=== PATIENT | male | born 1970 | race Caucasian/White ===

== ENCOUNTER 2016-11-28 09:49 | Observation (INO) | payer OTHER, MEDICAID ==
[2016-11-28 10:07] LABS: % IMMATURE GRANULYOCYTES 1.3 % (0.0-1.1); ABSOLUTE IMMATURE GRANULOCYTES 0.17 10^3/uL (0.00-0.10); ADD DIFF? NO; ADD MORPH? NO; ADD SCAN? NO; ATYPICAL LYMPHOCYTE FLAG 0 (0-99); FRAGMENT RBC FLAG 0 (0-99); HEMATOCRIT 33.7 % (40.0-51.0); HEMOGLOBIN 10.9 g/dL (13.7-17.5); LEFT SHIFT FLG 10 (0-99); LIPEMIA HEMOLYSIS FLAG 80 (0-99); MEAN CELL HEMOGLOBIN CONCENTR. 32.3 g/dL (32.4-36.7); MEAN CELL VOLUME 83.4 fL (81.5-99.8); MEAN PLATELET VOLUME 9.2 fL (8.7-11.7); PLATELET CLUMPS FLAG 50 (0-99); PLATELET COUNT 346 10^3/uL (150-400); RED BLOOD CELL COUNT 4.04 10^6/uL (4.40-6.38); RED CELL DISTRIBUTION WIDTH 15.7 % (11.5-15.2)
--- NOTE | 2016-11-28 10:12 | EDPHY ---
H & P Stated Complaint: Questionable TIA Time Seen by Provider: 11/28/16 09:52 HPI/ROS: CHIEF COMPLAINT: Transient aphasia, possible TIA HISTORY OF PRESENT ILLNESS: 46-year-old male history of morbid obesity (weight 370 lb), history of CHF, chronic kidney disease, dialysis, CHF, diabetes, currently residing at [facility] secondary to debility because he is unable to bear weight on his lower extremity secondary to old traumatic injury, arrives via ambulance from [facility] after a 30 minutes episode of expressive aphasia at 9:00 a.m. lasting approximately 30 minutes, now resolved. Resolved upon arrival by EMS. Patient remembers the event. He has no complaints of pain or discomfort. No headache. No chest pain. No back pain. No abdominal pain. He has been compliant with his Sunday dialysis, which dialysis yesterday (Sunday). . REVIEW OF SYSTEMS: A ten point review of systems was performed and is negative with the exception of the items mentioned in the HPI PAST MEDICAL & SURGICAL HISTORY: Morbid obesity, weight 370 lb, CHF, chronic kidney disease, dialysis, CHF, diabetes, inability to bear weight lower extremity secondary to old injury SOCIAL HISTORY:currently living at [facility]. Nonsmoker PHYSICAL EXAM (Prior to examination, patient consented to physical exam, hands were washed and my usual and customary physical exam procedures followed) 1) GENERAL: obese , alert and oriented. Appears to be in no acute distress. 2) HEAD: Normocephalic, atraumatic 3) HEENT: Pupils equal, round, reactive to light bilaterally. Sclera anicteric. 4) NECK: Full range of motion, no meningeal signs. 5) LUNGS: Clear auscultation bilaterally, no wheezes, no rhonchi, no retractions. 6) HEART: Regular rate and rhythm, no murmur, no heave, no gallop. 7) ABDOMEN: No guarding, no rebound, no focal tenderness, negative McBurney's, negative Chino's, negative Rovsing's, negative peritoneal sign, 8) MUSCULOSKELETAL: Moving all extremities, no focal areas of tenderness, no obvious trauma. No peripheral edema or discoloration. 9) BACK: No CVA tenderness, no midline vertebral tenderness, no fluctuance, no step-off, no obvious trauma, no visual or palpable abnormality. 10) SKIN: No rash, no petechiae. 11) Psychiatric: Patient is oriented X 3, there is no agitation. 12) NEURO: Awake, alert, and oriented to person, place and time. Answers questions appropriately. There were no obvious focal neurologic abnormalities. No cerebellar dysfunction. Cranial nerves 2 through to 12 intact. Upper and lower extremities bilaterally with strength 5 / 5, reflexes 2+. DIFFERENTIAL DIAGNOSIS: In no particular include but limited to CVA, migraine variant, TIA - Personal History Current Tetanus/Diphtheria Vaccine: Yes Current Tetanus Diphtheria and Acellular Pertussis (TDAP): Yes - Medical/Surgical History Hx Asthma: No Hx Chronic Respiratory Disease: No Hx Diabetes: Yes Hx Cardiac Disease: No Hx Renal Disease: Yes Hx Cirrhosis: No Hx Alcoholism: No Hx HIV/AIDS: No Hx Splenectomy or Spleen Trauma: No Other PMH: TIA, CKD, DIALYSIS, HTN, DM2 - Social History Smoking Status: Never smoked Constitutional: Initial Vital Signs Temperature (C) 36.9 C 11/28/16 09:54 Heart Rate 101 H 11/28/16 09:54 Respiratory Rate 14 11/28/16 09:54 Blood Pressure 141/104 H 11/28/16 09:54 O2 Sat (%) 85 L 11/28/16 09:54 O2 Delivery Mode Nasal Cannula O2 (L/minute) 2 Allergies/Adverse Reactions: No Known Allergies Allergy (Unverified 11/28/16 09:54) Medical Decision Making - Diagnostics Imaging: PA and Lateral Chest Indication: PAIN Shortness of breath and coughing. Comparison: None Findings: A right IJ dialysis catheter is present with the tip at the junction of superior vena cava and right atrium. Lungs are hypoventilated and clear with mild diffuse peribronchial thickening. Pulmonary vascularity is within normal limit. Heart size borderline enlarged for portable technique and degree of inspiration. No edema or effusion. Impression: 1. Hypoventilation. 2. No CHF or hilary fluid overload. Dictated By: Alonso Lopez MD Images reviewed by myself ED Course/Re-evaluation: 10:00 a.m.: Patient has as an NIH stroke score 0. Discussed case with Dr. Julio Bryan. Reviewed the patient's medical records. He is currently asymptomatic. 10:30 a.m.: Re-evaluation remains asymptomatic , NIH score of 0 11 am: Re-evaluation. He is asymptomatic. NIH score of 0. Discussed his elevated troponin which is in the indeterminate range. More likely secondary to his history of chronic kidney disease. Doubt acute cardiac injury. Doubt intracranial hemorrhage. Low utility with CT imagingis currently asymptomatic. Discussed MRI imaging. However due to his body habitus he will not fit in the MRI machine. 11:20 a.m.: Re-evaluation, he notes that his expressive aphasia has returned. On exam he has a nonfocal full peripheral examination however he is slow to form words. Discussed this with Dr. Bryan also evaluated the patient. Plan will be admission. 11:30 A.M.: Phone consultation with Dr. Dimitri Alvarez who will admit patient - Data Points Laboratory Results: Laboratory Results 11/28/16 04:52 11/28/16 04:52 11/28/16 11/28/16 04:52 04:52 WBC 12.92 10^3/uL H 10^3/uL (3.80-9.50) RBC 4.04 10^6/uL L 10^6/uL (4.40-6.38) Hgb 10.9 g/dL L g/dL (13.7-17.5) Hct 33.7 % L % (40.0-51.0) MCV 83.4 fL fL (81.5-99.8) MCH 27.0 pg L pg (27.9-34.1) MCHC 32.3 g/dL L g/dL (32.4-36.7) RDW 15.7 % H % (11.5-15.2) Plt Count 346 10^3/uL 10^3/uL (150-400) MPV 9.2 fL fL (8.7-11.7) Neut % (Auto) 77.3 % H % (39.3-74.2) Lymph % (Auto) 11.7 % L % (15.0-45.0) Piatt % (Auto) 8.0 % % (4.5-13.0) Eos % (Auto) 1.2 % % (0.6-7.6) Baso % (Auto) 0.5 % % (0.3-1.7) Nucleat RBC Rel Count 0.0 % % (0.0-0.2) Absolute Neuts (auto) 9.99 10^3/uL H 10^3/uL (1.70-6.50) Absolute Lymphs (auto) 1.51 10^3/uL 10^3/uL (1.00-3.00) Absolute Monos (auto) 1.03 10^3/uL H 10^3/uL (0.30-0.80) Absolute Eos (auto) 0.16 10^3/uL 10^3/uL (0.03-0.40) Absolute Basos (auto) 0.06 10^3/uL 10^3/uL (0.02-0.10) Absolute Nucleated RBC 0.00 10^3/uL 10^3/uL (0-0.01) Immature Gran % 1.3 % H % (0.0-1.1) Immature Gran # 0.17 10^3/uL H 10^3/uL (0.00-0.10) Sodium 139 mEq/L mEq/L (134-144) Potassium 4.9 mEq/L mEq/L (3.5-5.2) Chloride 98 mEq/L mEq/L (97-110) Carbon Dioxide 26 mEq/l mEq/l (22-31) Anion Gap 15 mEq/L mEq/L (8-16) BUN 64 mg/dL H mg/dL (7-23) Creatinine 4.6 mg/dL H mg/dL (0.7-1.3) Estimated GFR 14 Glucose 251 mg/dL H mg/dL (70-100) Calcium 9.1 mg/dL mg/dL (8.5-10.4) Troponin I 0.085 ng/mL H ng/mL (0-0.034) Medications Given: Discontinued Medications Sodium Chloride (Ns) 3,000 mls @ 0 mls/hr IV ONCE ONE PRN Reason: Wide Open Stop: 11/28/16 10:36 Last Admin: 11/28/16 10:39 Dose: Not Given Departure - Departure Disposition: [facility] Acute Clinical Impression: possible tia NIH Stroke Scale Date of Exam: 11/28/16 Time of Exam: 09:55 Level of Consciousness: Alert LOC Questions: Answers Both LOC Commands: Performs Both Correctly Best Gaze: Normal Visual: No Visual Loss Facial Palsy: Normal Motor Arm-Left: No Drift Motor Arm-Right: No Drift Motor Leg-Left: No Drift Motor Leg-Right: No Drift Limb Ataxis: Absent Sensory: Normal Best Language: No Aphasia Dysarthria: Normal Extinction and Inattention (Neglect): No Abnormality NIH Scale Score: 0
[2016-11-28 10:30] LABS: ANION GAP 15 mEq/L (8-16); CALCIUM 9.1 mg/dL (8.5-10.4); CARBON DIOXIDE 26 mEq/l (22-31); CHLORIDE 98 mEq/L (97-110); CREATININE 4.6 mg/dL (0.7-1.3); GLOMERULAR FILTRATION RATE 14; GLUCOSE 251 mg/dL (70-100); POTASSIUM 4.9 mEq/L (3.5-5.2); SODIUM 139 mEq/L (134-144)
--- NOTE | 2016-11-28 10:31 | CPEKG ---
Heart Rate: 94 RR Interval: 638 P-R Interval: 188 QRSD Interval: 98 QT Interval: 380 QTC Interval: 476 P Braham: 36 QRS Braham: -34 T Wave Braham: 81 EKG Severity - ABNORMAL ECG - EKG Impression: SINUS RHYTHM EKG Impression: VENTRICULAR PREMATURE COMPLEX EKG Impression: LEFT AXIS DEVIATION EKG Impression: BORDERLINE R WAVE PROGRESSION, ANTERIOR LEADS EKG Impression: NONSPECIFIC T ABNORMALITIES, LATERAL LEADS EKG Impression: BORDERLINE PROLONGED QT INTERVAL Electronically Signed By: Julio Bryan 28-Nov-2016 14:37:01
[2016-11-28] MEDS ORDERED: NS 3,000 ML IV ONE (10:35)
[2016-11-28 10:42] LABS: TROPONIN I 0.085 ng/mL (0-0.034)
[2016-11-28] MEDS ORDERED: SENNOSIDES/DOCUSATE SODIUM TAB PO PRN (18:27)
[2016-11-28] MEDS ORDERED: GABAPENTIN 300 MG CAP PO PRN (18:27)
[2016-11-28] MEDS ORDERED: DOCUSATE SODIUM 100 MG CAP PO PRN (18:27)
[2016-11-28] MEDS ORDERED: CYCLOBENZAPRINE 10 MG TAB PO PRN (18:27)
[2016-11-28] MEDS ORDERED: POLYETHYLENE GLYCOL 3350 17 GM PKT PO PRN (18:27)
[2016-11-28] MEDS ORDERED: ZOLPIDEM TARTRATE 5 MG TAB PO PRN (18:29)
[2016-11-28] MEDS ORDERED: ONDANSETRON 4 MG/2 ML VIAL IVP PRN (18:29)
--- NOTE | 2016-11-28 18:37 | PDGENHP ---
History and Physical History and Physical: HISTORY AND PHYSICAL CC: Difficulty with speech HISTORY: This patient was in his usual state of health until earlier today approximately 9:00 a.m. when he was pouring juice into a glass and dropped the glass. Aside from this there was no difficulty using his right hand and no other focal weakness. At that time he found he was having some difficulty finding his words. He also at same time was feeling fairly lightheaded and said that there was a weight he has that came over his vision diffusely. All of this lasted approximately 20-30 minutes. By the time he arrived here to the ER at 10 o' clock he has resolved all of his symptoms and had a normal neurologic exam. Subsequently he had a milder similar episode for about 5 minutes while in the ER. Again resolved completely. He says this feels similar to an episode he had in July of 2015 that was diagnosed as a TIA and evaluated at [facility] There is no fever, headaches, palpitations, chest pain, nausea or vomiting. 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 I have reviewed the list and ordered appropriate medicines. PHYSICAL EXAMINATION: Vital Signs: Stable without fever Statistics Professor: Sinus rhythm Examination: General: alert, oriented, good mentation, relaxed, very obese Skin: warm, dry, good color, no rash HEENT: normal Neck: no mass or jvd Resps: relaxed Lungs: clear breath sounds Heart: regular, no murmur Abdomen: soft, nondistended, nontender, +BS, no mass Upper Extremities: normal Lower Extremities: no edema, warm No Bleeding or bruising Neurologic: normal speech/language, normal informatics spec, no focal weakness, no pronator drift IV site: looks normal LABORATORY DATA: [place] [address], hemoglobin 10.9, creatinine 4.6 but electrolytes good RADIOLOGY STUDIES: CT scan of head shows no evidence of acute stroke, hemorrhage, mass or other acute abnormality; there is a 3 good atherosclerosis of cerebral vascular vessels Doppler ultrasound of carotid shows no flow limiting stenosis no velocities approaching 50% stenosis but plaque is noted ASSESSMENT: # ACUTE EPISODE OF LIGHTHEADEDNESS, FOGGY VISION, DIFFICULTY SPEAKING, AND DROPPED THE GLASS -the etiology is unclear but certainly is potentially consistent with TIA. This could have been a syncopal type spell or glucose abnormality -there is previous history of diagnosed TIA, will need to get records to review that evaluation elsewhere # MILD CEREBRAL VASCULAR ATHEROSCLEROSIS ON IMAGING STUDIES TODAY # TYPE 2 DIABETES MELLITUS # HYPERTENSION CONTROLLED AT THIS TIME # HYPERCHOLESTEROLEMIA ON TREATMENT # END-STAGE RENAL DISEASE ON DIALYSIS PLANS: -observe overnight on lunchroom monitor -Frequent neurochecks -Neurology consultation requested -have close monitoring of blood pressure, blood sugar, oxygen and temperature and appropriate management as needed -he will need dialysis here tomorrow so will contact Dr. Hensley -request records from [facility] from his July 2015 evaluation I have reviewed the patient's case in detail with Celina barahona physician commercial assistant of the ER
[2016-11-28] MEDS ORDERED: PATCH REMOVAL 1 EA PATCH TD SCH (21:00)
[2016-11-28] MEDS ORDERED: TAMSULOSIN HCL 0.4 MG CAP PO SCH (21:00)
[2016-11-28] MEDS ORDERED: INSULIN ASPART NovoLOG 70/30 100 UNITS/ML SYR SC SCH (21:00)
[2016-11-28] MEDS: BUMETANIDE 2 MG TAB PO SCH (21:39)
[2016-11-28] MEDS: ISOSORBIDE DINITRATE 20 MG TAB PO SCH (21:39)
[2016-11-28] MEDS: HEPARIN 5,000 UNIT/0.5 ML SYR SC SCH (21:39)
[2016-11-28] MEDS: ACETAMINOPHEN 325 MG TAB PO PRN (21:40)
[2016-11-28] MEDS: CALCIUM ACETATE 667 MG CAP PO SCH (21:40)
[2016-11-28] MEDS: FUROSEMIDE 40 MG TAB PO SCH (21:40)
[2016-11-29] MEDS: HEPARIN 5,000 UNIT/0.5 ML SYR SC SCH (05:22)
[2016-11-29 06:08] LABS: ALANINE AMINOTRANSFERASE 30 IU/L (21-72); ALBUMIN 3.4 g/dL (3.5-5.0); ALKALINE PHOSPHATASE 87 IU/L (38-126); ANION GAP 15 mEq/L (8-16); ASPARTATE AMINOTRANSFERASE 16 IU/L (17-59); BILIRUBIN,TOTAL 0.5 mg/dL (0.1-1.4); CARBON DIOXIDE 25 mEq/l (22-31); CHLORIDE 96 mEq/L (97-110); CHOLESTEROL 184 mg/dL (140-200); CHOLESTEROL/HDL RATIO 6.13 RATIO (1.00-4.97); CREATININE 5.5 mg/dL (0.7-1.3); GLOMERULAR FILTRATION RATE 11; GLUCOSE 131 mg/dL (70-100); HIGH DENSITY LIPOPROTEIN 30 mg/dL (40-65); LDL/HDL RATIO 4.17 RATIO (1.00-3.64); LOW DENSITY LIPOPROTEIN 125 mg/dL (70-100); NON-HIGH DENSITY LIPOPROTEIN 154 mg/dL (90-129); POTASSIUM 4.1 mEq/L (3.5-5.2); SODIUM 136 mEq/L (134-144); TOTAL PROTEIN 7.3 g/dL (6.3-8.2); TRIGLYCERIDE 145 mg/dL (40-150); VERY LOW DENSITY LIPOPROTEINS 29 mg/dL (8-25)
[2016-11-29 07:29] VITALS: BP 186/100; PULSE 104; RESP 15; TEMP 98.6; O2SAT 92
[2016-11-29] MEDS ORDERED: CARVEDILOL 6.25 MG TAB PO SCH (08:00)
[2016-11-29] MEDS: INSULIN ASPART NovoLOG 70/30 100 UNITS/ML SYR SC SCH ×2 (08:27→11:35)
[2016-11-29] MEDS: BUMETANIDE 2 MG TAB PO SCH (08:28)
[2016-11-29] MEDS: ISOSORBIDE DINITRATE 20 MG TAB PO SCH (08:28)
[2016-11-29] MEDS: CALCIUM ACETATE 667 MG CAP PO SCH (08:28)
[2016-11-29] MEDS: ACETAMINOPHEN 325 MG TAB PO PRN (08:29)
[2016-11-29] MEDS: FUROSEMIDE 40 MG TAB PO SCH (08:29)
[2016-11-29] MEDS ORDERED: ENOXAPARIN 40 MG/0.4 ML SYR SC SCH (09:00)
[2016-11-29] MEDS ORDERED: LIDOCAINE 5% 1 EA PATCH TD SCH (09:00)
[2016-11-29] MEDS ORDERED: INSULIN GLARGINE 100 UNITS/ML SYRINGE SC SCH (09:00)
--- NOTE | 2016-11-29 10:55 | PDIAF ---
- Diagnosis Diagnosis: suspected fictitious symptoms of speech aphasia Code Status: Full Code - Medication Management Discharge Medications: Medications to Continue on Transfer Acetaminophen [Tylenol 325mg (*)] 650 mg PO TID 11/28/16 [Last Taken Unknown] Bumetanide [Bumex (*)] 2 mg PO BID 11/28/16 [Last Taken Unknown] Calcium Acetate [Phoslo (*)] 667 mg PO TID 11/28/16 [Last Taken Unknown] Carvedilol [Coreg (*)] 12.5 mg PO BIDMEAL 11/28/16 [Last Taken Unknown] Cyclobenzaprine [Flexeril 10 MG (*)] 10 mg PO DAILY PRN 11/28/16 [Last Taken Unknown] Docusate Sodium [Colace 100 MG (*)] 100 mg PO BID PRN 11/28/16 [Last Taken Unknown] Furosemide [Lasix 80 MG (*)] 80 mg PO BID 11/28/16 [Last Taken Unknown] Gabapentin [Neurontin 300 MG (*)] 300 mg PO Q8HRS PRN 11/28/16 [Last Taken Unknown] Insulin Aspart Novolog 70/30 [Novolog Mix 70/30 (*)] 4 units SC 11/28/16 [ Last Taken Unknown] Insulin Aspart Novolog 70/30 [Novolog Mix 70/30 (*)] 4 units SC 11/28/16 [ Last Taken Unknown] Insulin Glargine [Lantus 100 UNITS/ML (*)] 22 units SC DAILY 11/28/16 [Last Taken Unknown] Isosorbide Dinitrate [Isosorbide Dinitrate 20 mg (*)] 20 mg PO TID 11/28/16 [ Last Taken Unknown] Lidocaine 5% [Lidoderm 5% Patch (*)] 1 ea TD DAILY 11/28/16 [Last Taken Unknown] Polyethylene Glycol 3350 [Miralax 17 gm (*)] 17 gm PO DAILY PRN 11/28/16 [Last Taken Unknown] Sennosides/Docusate Sodium [Senna-Docusate Sodium Tablet] 1 each PO BID PRN [Last Taken Unknown] Tamsulosin HCl [Flomax 0.4 MG (*)] 0.4 mg PO HS 11/28/16 [Last Taken Unknown] Patch Removal 1 ea TD DAILY21 #0 patch 11/29/16 [Last Taken Unknown] Discharge Medications: Refer to the Discharge Home Medication list for PRN reason. - Orders Additional: Continue dialysis as usual - Follow Up Care Current Providers and Referrals: DORETHA CORBETT [Other]
--- NOTE | 2016-11-29 11:02 | PDDCSUM ---
Discharge Summary Discharge Summary: DISCHARGE DIAGNOSES: -transient aphasic speech of uncertain etiology, suspect factitious symptom PROCEDURES: Noncontrast CT scan of head with no acute abnormalities Carotid Doppler ultrasound with mild plaque but no flow limiting stenoses identified HOSPITAL COURSE SUMMARY: This patient presented to the ER after an episode of expressive aphasia of speech. However as the symptom was described there were specific features to the episode that did not sound very stroke-like enough anything actually sounded more near syncopal like. Here in the hospital during his period of observation there were no recurrent episodes overnight. During my visit with the patient on this day of discharge, he was asleep as I enter the room. As I attempted to arouse the patient from sleepy appeared to me to " resisting arousal, and then finally suddenly awoke and jumped up and immediately started speaking rapidly and without any difficulty or speech abnormalities. His 1st words to me were "did you see me trying to talk to you, did you see that I could not talk". He then went on to tell me about a dream who has having where he was trying to talk to a inspectors and regulatory officers who could not hear him. The rest of my neurologic exam with him again today is normal with a thorough murder cranial nerve and cerebellar exam and testing for pronator drift. CT scan of head showed no acute abnormalities. Carotid ultrasound Dopplers showed no significant flow limiting stenoses. Cardiac monitoring showed no evidence of any significant arrhythmia. His LDL cholesterol at 125. His blood pressures have overall been good here though he did have 1 higher blood pressure this morning. I reviewed the case in detail with his director of premium seat sales Dr. Hensley. Dr. Hensley feels that is possible that he is not below desired volume status as the been trying to reduce his weight at dialysis recently and wonders if this might have impacted the patient's symptoms. Overall my suspicion for these episodes being cerebral vascular or a TIA/stroke episodes is extremely low. I am concerned that this may be set of factitious symptoms that the patient has. The patient does have a history of bipolar disorder. During this hospital stay he is not displaying hallucinations or significant signs of paranoia or delusions. At this time the patient is felt stable for discharge. He will be transported from here to his usual outpatient dialysis center for his scheduled session there today and then back to his home at [facility]. MEDICATION CHANGES: None FOLLOW-UP PLAN: With Dr. Jordan at [facility] and with Dr. Hensley through the dialysis center and Nephrology clinics
--- NOTE | 2016-11-29 11:33 | SOAPPROG ---
SOAP Progress Note Assessment/Plan: Assessment: 1. Possible aphasia. Neuro eval negative. Query whether pt had side f/x due to fluid removal Sunday. Appears to be at dry weight. Per hospitalist service. 2. ESRD. HD later today, hopefully at outpatient unit. 3. Leg pain. Chronic. Defer pain mgmt to primary MD at [facility]. Would avoid NSAIDs. Gave note to pt per his request indicating that this is only renally restricted pain med. Plan: 11/29/16 11:31 Subjective: H&P , prog notes reviewed. MWF ESRD admitted with altered ability to speak. Neuro eval negative. Feeling better today. Did have cramps after dialysis Sunday. C/o lots of left leg pain, wants more pain meds. Objective: Vital Signs Temp Pulse Resp BP Pulse Ox 37.0 C 104 H 15 186/100 H 92 11/29/16 07:28 11/29/16 07:28 11/29/16 07:28 11/29/16 07:28 11/29/16 07:28 Laboratory Results 11/29/16 04:24 11/28/16 11/29/16 11/30/16 05:59 05:59 05:59 Intake Total 750 Output Total 100 Balance 650 Comfortable, awake alert Neuro - grab driver II-XII grossly intact; maew RRR, no m/g/r CTAB Abdom soft, nt No LE edema ICD10 Worksheet Patient Problems: Problems Problem Status Onset ESRD (end stage renal disease) Acute - ICD10 Problem Qualifiers (1) ESRD (end stage renal disease)
== END 2016-11-29 11:45 ==
LOC: EDUNIT# → INTOOBSV 11:41 → F3N 13:34
PROVIDERS: ADMIT Internal Medicine; ATTEND Internal Medicine
DX: R47.01 Aphasia (principal); E10.22 Type 1 diabetes mellitus with diabetic chronic kidney disease; E66.01 Morbid (severe) obesity due to excess calories; N18.6 End stage renal disease; Z99.2 Dependence on renal dialysis; I12.0 Hypertensive chronic kidney disease with stage 5 chronic kidney disease or end stage renal disease; I50.9 Heart failure, unspecified; I13.2 Hypertensive heart and chronic kidney disease with heart failure and with stage 5 chronic kidney disease, or end stage renal disease; F31.9 Bipolar disorder, unspecified
CPT/HCPCS: 70450; 71020; 93005; 93880; 97166; 99285; G0378; G8987; G8988; G8989; J1815